=== PATIENT | female | born 2005 | race Two or more races ===

== ENCOUNTER 2024-12-17 18:02 | Emergency (ER) | payer MEDICAID, SELFPAY ==
[2024-12-17 18:43] VITALS: BP 138/89; PULSE 131; RESP 17; TEMP 37.4; O2SAT 99; BMI 33.2
--- NOTE | 2024-12-17 18:48 | PD.EDRME ---
Rapid Medical Screening Exam E Arrival date/time: 12/17/24 18:02 19F with history of psych (was on Zoloft and then Wellbutrin; w/o relief) presents to ED with mom for SI w/ plan including using dad's gun or ODing. Chief Complaint: Suicidal Time Seen by Provider: 12/17/24 20:41 Vital signs: Vital Signs Temperature 99.4 F 12/17/24 18:43 Pulse Rate 131 H 12/17/24 18:43 Respiratory Rate 17 12/17/24 18:43 Blood Pressure 138/89 H 12/17/24 18:43 Pulse Oximetry (%) 99 12/17/24 18:43 Oxygen Delivery Method Room Air 12/17/24 18:43
--- NOTE | 2024-12-17 18:56 | PC.CC ---
Patient is present for a mental health evaluation. Patient is pending medical clearance for mental health evaluation.
[2024-12-17 19:15] LABS: Basophils % (Auto) 0 % (0-2.5); Eosinophils # (Auto) 0.2 Thou/mm3 (0.0-0.5); Eosinophils % (Auto) 2 % (0-10); Hematocrit 37.3 % (36.0-46.0); Hemoglobin 12.8 g/dL (12.0-16.0); Immature Granulocytes % (Auto) 0 % (0-0); Immature Granulocytes Auto 0.05 Thou/mm3 (0.00-0.00); Lymphocytes # (Auto) 2.1 Thou/mm3 (1.0-4.8); Lymphocytes % (Auto) 18 % (10-50); Mean Corpuscular HGB Conc 34.3 g/dl (31.0-37.0); Mean Corpuscular Hemoglobin 27.3 pg (25.0-35.0); Mean Corpuscular Volume 80 fL (80-100); Monocytes # (Auto) 0.7 Thou/mm3 (0.0-0.8); Monocytes % (Auto) 6 % (0-12); Neutrophils # (Auto) 8.5 Thou/mm3 (1.8-7.7); Neutrophils % (Auto) 73 % (37-80); Nucleated Red Blood Cell % 0 /100 WBC (0); Platelet Count 401 Thou/mm3 (140-440); RDW Standard Deviation 36.1 fL (36.4-46.3); Red Blood Count 4.69 Miln/mm3 (4.00-5.20); White Blood Count 11.6 Thou/mm3 (3.6-11.0)
[2024-12-17 19:29] LABS: Acetaminophen < 2.0 mcg/mL (10.0-20.0); Alanine Aminotransferase 14 U/L (10-49); Albumin, Serum 4.6 gm/dL (3.5-5.0); Albumin/Globulin Ratio 1.2 (1.2-2.2); Alcohol, Blood Medical < 3.0 mg/dL (0-10.0); Alkaline Phosphatase 95 U/L (46-116); Anion Gap 10 (7-16); Aspartate Amino Transferase 21 U/L (0-34); BUN/Creatinine Ratio 13 Ratio (12-20); Bilirubin,Total 0.4 mg/dL (0.3-1.2); Blood Urea Nitrogen 9 mg/dL (9-23); Calcium 10.4 mg/dL (8.3-10.6); Calcium (Corrected) 10.4 mg/dL (8.5-10.1); Carbon Dioxide 28.5 mMol/L (20.0-31.0); Chloride 102 mMol/L (98-107); Creatinine (Component) 0.7 mg/dL (0.6-1.3); Estimated Creatinine Clearance 116.7 mL/min (>60); Globulin 3.7 gm/dL (2.3-3.5); Glucose 146 mg/dL (74-106); Osmolality,Calculated 281 (275-295); Potassium 3.9 mMol/L (3.4-5.1); Salicylate < 3.0 mg/dL; Sodium 140 mMol/L (136-145); Total Protein 8.3 gm/dL (5.7-8.2); eGFR > 60 See Note
--- NOTE | 2024-12-17 20:44 | PD.EDSUICD ---
ED Psych RME/HPI General Chief Complaint: Suicidal Stated Complaint: SUICIDAL IDEATION / SELF HARM Time Seen by Provider: 12/17/24 20:41 Arrival date/time: 12/17/24 18:02 Limitations: no limitations RME / HPI RME / HPI Narrative: 12/17/24 18:02 19F with history of psych (was on Zoloft and then Wellbutrin; w/o relief) presents to ED with mom for SI w/ plan including using dad's gun or ODing. DR. DELACRUZ MAIN ED EVALUATION: 19 year old female with past medical history significant for psychiatric disorders was on Zoloft and then Wellbutrin without relief, presents to the Emergency Department accompanied by the mother with complaint of suicidal ideation. Patient sent by therapist because patient had plan and unsafe for her at home. She states she has the plan to self harm with her dad's gun or ODing, which is overdosing. No hallucinations or homicidal ideation. No other symptoms reported. Related Data Allergies Allergy/AdvReac Type Severity Reaction Status Date / Time NKA* Allergy Uncoded 12/17/24 18:05 Review of Systems Review of Systems Systems Reviewed: All systems reviewed, normal except as documented Narrative Review of Systems: GEN: No fever, no chills, no weight loss EYES: No discharge, no visual changes, no pain HEENT: No ear pain, no congestion, no sore throat PULM: No shortness of breath, no cough, no congestion CV: No chest pain, no dyspnea on exertion, no palpitations GI: No nausea, no vomiting, no diarrhea, no pain, no constipation : No frequency, no urgency and no dysuria MUSC/SKEL: No joint pain, no back pain SKIN: No rash PSYCH: No hallucinations, + depression, +suicidal ideation, no homicidal ideation HEME/LYMPH: No easy bleeding or bruising tendencies NEURO: No weakness, no headache Past Medical History Social History SMOKING STATUS: Never smoker SUBSTANCE USE: does not use ALCOHOL: Never ED Exam General Limitations: Present no limitations General appearance: Present alert and in no apparent distress Head Head exam: Present atraumatic, normocephalic and normal inspection Eye Eye exam: Present normal appearance, PERRL and EOMI ENT ENT exam: Present normal exam, normal oropharynx and mucous membranes moist Neck Neck exam: Present normal inspection, full ROM and trachea midline Chest Chest inspection: Present normal inspection and symmetric chest wall rise Respiratory Respiratory exam: Present normal lung sounds bilaterally Cardiovascular Cardiovascular exam: Present regular rate, normal rhythm and normal heart sounds Abdominal Exam Abdominal exam: Present soft and normal bowel sounds Extremities Exam Extremities exam: Present normal inspection and full ROM Back Exam Back exam: Present normal inspection and full ROM Neurological Exam Neurological exam: Present alert, oriented X3 and CN II-XII intact Psychiatric Psychiatric exam: Present suicidal ideation Skin Skin exam: Present warm, dry, intact and normal color Course Course Course Narrative: 231: Patient is medically clear for crisis. Quality Measures none Orders Category Date Time Status Acetaminophen Stat Lab 12/17/24 18:58 Completed Alcohol, Blood Medical Stat Lab 12/17/24 18:58 Completed CBC Stat Lab 12/17/24 18:58 Completed CMP [Comprehensive Metabolic Panel] Stat Lab 12/17/24 18:58 Completed Drug Screen,Urine Stat Lab 12/17/24 21:30 Completed HCG Qualitative,Urine Stat Lab 12/17/24 21:30 Completed Salicylate Stat Lab 12/17/24 18:58 Completed Vital Signs Vital signs: Vital Signs Temperature 99.4 F 12/17/24 18:43 Pulse Rate 131 H 12/17/24 18:43 Respiratory Rate 17 12/17/24 18:43 Blood Pressure 138/89 H 12/17/24 18:43 Pulse Oximetry (%) 99 12/17/24 18:43 Oxygen Delivery Method Room Air 12/17/24 18:43 Psych MDM Narrative MDM Narrative:: 19-year-old female presenting to the emergency department with SI. She has a history of depression. She has access to her medications and to potentially her father's guns even though the family member says they are locked up. The patient cannot contract for safety here in emergency department. At this time she is voluntary and if she attempts to leave I will then put her on a 7099 but at this time she is appropriate and is asking for help. 0200- Patient is medically cleared. Otherwise her hCG is negative, Tylenol is negative, and otherwise drug screen is negative. This is interpreted by me and normal. The patient remains in ED observation care at?2311 12/17/2024, pending evaluation. The patients past medical, social, and family history reviewed.? The plan of care will include serial examinations. Patient signed out to Dr. AGA 0600 pending psych evaluation. Patient given no medications overnight. At this time, observation has ended. Susanna Pappas am scribing for and in the presence of Dr. Delacruz. Patient data External records reviewed:: None (no previous visits) Clinical information provided by:: patient and parent (mother) Social determinants that could affect healthcare access:: mental health Patient has the following chronic illnesses:: psychiatric disorders was on Zoloft and then Wellbutrin without relief How is presenting disease/condition affected by chronic disease/condition?: caused by Evaluation data The following diagnostics were reviewed and interpreted by me:: lab results Lab and/or radiology exams considered but not ordered:: none Interpretation Summary: See above under MDM narrative. Medications / Prescriptions Medications or Prescriptions considered but not ordered:: none Medication administrations:: see above if any Consultations Consultation(s) initiated? (list below): No Diagnosis Psych Differential Diagnosis: suicidal ideation, depression and acute anxiety Most likely diagnosis given after review of the tests above:: see clinical impression below Admission Indicated Admission indicated?: not indicated Admission Request Was there a request for admission?: No Disposition Plan Disposition Plan: other (specify) (Signed out to Dr. Ram at 0600 pending crisis evaluation.) Discharge Plan Plan Disposition Comment: Stable at sign out Prescriptions/Referrals Referrals: Abby Montenegro FNP-C [Primary Care Provider] - In 1 week Problem List Clinical Impression: History of depression, Feeling suicidal Patient/Caregiver Discharge Instructions Print Language: Bengali
[2024-12-17 22:38] LABS: HCG Qualitative,Urine Negative
[2024-12-17 22:47] LABS: Amphetamine/Methamp Scrn,U Negative (Negative); Barbiturate Screen,Urine Negative (Negative); Benzodiazepines Screen,Urine Negative (Negative); Benzoylecgonine Screen, Ur Negative (Negative); Fentanyl Screen,Urine Negative (Negative); Opiate Screen,Urine Negative (Negative); THC Screen,Urine Negative (Negative)
[2024-12-18] VITALS (7 sets, daily range): BP systolic 112–125; BP diastolic 76–89; PULSE 85–100; RESP 14–18; TEMP 36.6–37.2; O2SAT 97–99
--- NOTE | 2024-12-18 06:00 | PD.EDADDENDU ---
Emergency Room Addendum Addendum Narrative: 0600: Care assumed from Dr. Delacruz, the previous shift emergency physician. Past medical, surgical, social and family history reviewed. Vitals and home medications reviewed. I will assume the care of the patient at this time, pending crisis evaluation. Please refer to the emergency department record for history and examination from initial visit.? The patient was placed in ED observation care at 12/18/2024 at 0600 hours. The patient was placed in ED observation care pending behavioral health evaluation/ CRISIS evaluation and then after CRISIS evaluation at 0850 hours: for decompensated behavioral health evaluation, no behavioral health bed available. The patients past medical history, social history, and family history were reviewed. The plan of care will include serial examinations. While in ED observation the patient will have access to water, food, and personal hygiene. If the patient takes home medication(s), they will be continued in ED observation. Physical exam by me shows patient under no acute distress at this time. 0850: Upon CRISIS evaluation, patient will be placed on a 5150-hold for Danger to Self. 1059: Patient accepted for placement at [facility] by Dr. Hammond. ETA is 1330 hours. 1320: EMS here to transport the patient to [facility]. ED observation care ended at 12/18/2024 at 1320 hours.
--- NOTE | 2024-12-18 08:52 | PC.CC ---
Patient is a 19 year-old female who presents to the hospital for mental health evaluation due to suicidal ideations. Michel met with patient [id number] to complete assessment. ASW introduced self, role, and reason for assessment. ASW disclosed limits of confidentiality as well. Patient appeared alert and oriented to self, place, and situation. Patient?s mood appeared depressed with a flat affect. No signs of delusions, paranoid or V/h. Patient reports that yesterday she went to [facility] to obtain a refill for her Wellbutrin when the provider completed a [place] Screening and patient disclosed suicidal ideations. The provider recommended patient to come to the hospital for a mental health evaluation. Patient has a diagnosis of Depression but is not connected to outpatient mental health services. Patient reports she recently had a medication change from Zoloft to Wellbutrin but had not taken it in 3 weeks as she has not been able to get a refill. Patient was unable to elaborate on triggers to suicidal ideations. Patient reports she has been very depressed for the past two months. Patient disclosed she will go days without a shower and will remain in bed all day and is tired of feeling like this. Patient had an intake assessment with [facility] but is pending her next appointment. Patient reports that when she has does have the ideations that she has plan with intention to get one of her father's guns or OD on medication. Patient denies visual and auditory hallucinations and homicidal ideations. Patient denies SI at the time of encounter. Patient denied past suicide attempts and ever being placed on a 5150-hold. Patient's parents Aleksandar and Mela Gaona presented to the hospital and are now at bedside with patient. Patient provided verbal consent to speak to parents for collateral information while in the room with the patient. Per parents, the y have had a difficult time getting the patient connected to a psychiatrist and are aware that patient could benefit from mental health services. They have been discouraged as the patient has not been able to obtain a refill for her Wellbutrin. The father reports that all of his guns are secure in a safe that only he has access to that not even mother has access to the inside of the safe. The parents stated, we feel like we are dancing in circles attempting to get her connected to a psychiatrist. Patient reports that she feels she could benefit from being placed on a 5150-hold for psychitric services and parents are in support. Parents again shared their concerns about the difficulty of getting patient connected to outpatient mental health services including a psychiatrist. Upon clinical consultation with [employer], Catherine Galvan patient will be placed on a 5150-hold for Danger to Self. ASW provided advisement to patient and patient was receptive. ASW provided discharge plan to [facility] Facility to Dr. Ram, non destructive testing specialist Chong, and bedside RN Adebayo. ASW to send referral to LPS facilities via [employer].
--- NOTE | 2024-12-18 10:57 | PC.CC ---
Patient was accepted to [facility], [address], Raine Snider provided accepting information. Patient was provided with accepting information as well as her parents. Dr. Ram, wallboard worker Chong, and bedside RN Adebayo were provided with accepting information and discharge plan to [facility] Facility. Юлия THACKER to arrange transportation
== END 2024-12-18 13:20 ==
LOC: SERX 21:41
PROVIDERS: Physician Assistant; Emergency Provider Emergency Medicine; PCP Nurse Practitioner Family
DX: R45.851 Suicidal ideations (principal); F32.A Depression, unspecified; Z75.1 Person awaiting admission to adequate facility elsewhere
CPT/HCPCS: 36415; 80053; 80307; 80320; 80329; 81025; 85025; 90839; 96127; 99285; G0480